=== PATIENT | male | born 1990 | race Caucasian/White ===

== ENCOUNTER 2022-09-01 14:05 | Emergency (ER) | payer OTHER | END 2022-09-01 16:30 | disposition home or self-care (01) | LOC: CC.ED 14:05 | DX: S16.1XXA Strain of muscle, fascia and tendon at neck level, initial encounter (principal); S39.012A Strain of muscle, fascia and tendon of lower back, initial encounter; V59.9XXA Occupant (driver) (passenger) of pick-up truck or van injured in unspecified traffic accident, initial encounter | CPT/HCPCS: 72125; 72131; 99283; 99284 ==